=== PATIENT | male | born 1980 | race Hispanic/Latino ===

== ENCOUNTER 2023-02-13 10:05 | Emergency (ER) | payer OTHER, SELFPAY ==
--- NOTE | ~2023-02-13 | XR_ITS ---
EXAMINATION: XR chest 2V DATE: 02/13/2023 10:49 INDICATION: Bilateral rib pain. TECHNIQUE: Frontal and lateral views of the chest were obtained. COMPARISON: Chest 2 views 04/14/2016, CT abdomen and pelvis 05/22/2019 FINDINGS: There is mild scarring at the lung apices. No pleural effusion or pneumothorax. The heart s ize is normal. IMPRESSION: 1. Mild scarring at the lung apices. Reviewed, dictated and finalized at location A.
[2023-02-13 10:27] VITALS: BP 121/74; PULSE 105; RESP 16; TEMP 37.2; O2SAT 100
--- NOTE | 2023-02-13 10:30 | ED.URI ---
HPI - URI/Sore Throat General Chief Complaint: Upper Respiratory Infection Stated Complaint: SOB/Fatique/Bodyaches Time Seen by Provider: 02/13/23 10:30 Source: patient Limitations: no limitations History of Present Illness HPI Narrative: 42 year male presents with complaint, nasal congestion, postnasal drainage, sore throat, fatigue, body aches for the past 5 days. Afebrile. Reports that symptoms started after a windy day at work. States that concrete dust was blowing all over in his face. No history of previous problems with allergies. Does not take any daily antihistamines. Is taking [id number] Mucinex, DayQuil NyQuil cold and flu. reports some shortness of breath with exertion today. patient's would like him to have a chest x-ray. All systems reviewed and negative except as noted above. Related Data Allergies Allergy/AdvReac Type Severity Reaction Status Date / Time No Known Allergies Allergy Verified 02/13/23 10:33 Review of Systems Review of Systems: CONSTITUTIONAL: Denies fever, chills, or sweats. EYES: Denies visual changes, redness, or discharge. ENT: Reports rhinorrhea, congestion, sore throat patient deniesotalgia. CARDIOVASCULAR: Denies chest pain, palpitations, or edema. RESPIRATORY: reports cough and dyspnea with exertion. GASTROINTESTINAL: Denies abdominal pain, nausea, vomiting, or diarrhea. GENITOURINARY: Denies dysuria or hematuria. SKIN: Denies rash or itching. MUSCULOSKELETAL: Denies back pain, joint pain, or myalgia. NEUROLOGIC: Denies headache, numbness, or weakness. PSYCHIATRIC: Denies anxiety or depression. All other systems reviewed are negative, except as documented in HPI. PMFSH Comments At time of signature, agree with nursing past medical, surgical, social and family history. There is no relevant family history pertinent to the presenting complaint. Exam Narrative: GENERAL: This is a well-nourished, well-developed patient, in no apparent distress. HEAD: normocephalic, atraumatic. EYES: PERRL. Sclera clear/white. Vision is grossly intact. EARS: External ears normal, auditory canals clear and without drainage, Fluid to bilateral TMs without erythema or perforation. NOSE: External nose normal with Clear nasal drainage, mild erythema to nares. THROAT: Mucous membranes moist, Mild posterior pharynx erythema with clear postnasal drainage. NECK: Neck supple, non-tender without lymphadenopathy, masses or thyromegaly. CARDIOVASCULAR: Regular rate and rhythm without murmurs, gallops, or rubs. RESPIRATORY: Clear to auscultation. Breath sounds equal bilaterally. No wheezes, rales, or rhonchi. SKIN: warm, Dry, intact with no suspicious lesions or rash, good texture and turgor. NEURO: awake, alert, and oriented to person, place and time. There were no obvious focal neurologic abnormalities. EXTREMITIES: No joint tenderness, effusion, or edema noted. Course Course Level of Care: Express Care Visit Vital Signs Vital signs: Vital Signs Temperature 37.2 C 02/13/23 10:27 Pulse Rate 105 H 02/13/23 10:27 Respiratory Rate 16 02/13/23 10:27 Blood Pressure 121/74 02/13/23 10:27 Pulse Oximetry 100 02/13/23 10:27 Oxygen Delivery Room Air 02/13/23 10:27 Temperature 37.2 C 02/13/23 10:27 Pulse Rate 105 H 02/13/23 10:27 Respiratory Rate 16 02/13/23 10:27 Blood Pressure 121/74 02/13/23 10:27 Pulse Oximetry 100 02/13/23 10:27 Oxygen Delivery Room Air 02/13/23 10:27 Reviewed MDM - URI/Sore Throat MDM Narrative Medical decision making narrative: Patient is aware of diagnosis, understands and agrees to treatment plan. Anticipatory guidance given. Patient agrees to follow-up as directed and is aware of reasons to seek care at the emergency department. Portions of this record may have been created with voice recognition software Imaging Data My impression: Agree with radiologist Radiologist's impression: EXAMINATION: XR chest 2V
== END 2023-02-13 11:13 | disposition home or self-care (01) ==
PROVIDERS: Emergency Provider Nurse Practitioner Family; PCP Registered Nurse
DX: J20.9 Acute bronchitis, unspecified (principal); J30.9 Allergic rhinitis, unspecified; Z20.822 Contact with and (suspected) exposure to COVID-19
CPT/HCPCS: 71046; 87081; 87426; 87804; 87880; 99213; C9803; G0463

== ENCOUNTER 2024-07-26 16:54 | Emergency (ER) | payer OTHER, SELFPAY ==
--- NOTE | ~2024-07-26 | XR_ITS ---
EXAMINATION: XR abdomen/kub 1V DATE: 07/26/2024 18:03 INDICATION: Intermittent abdominal pain. TECHNIQUE: A supine view of the abdomen was obtained. COMPARISON: CT abdomen and pelvis 05/22/2019 FINDINGS: There are no dilated loops of bowel. There is a moderate volume of stool in the colon. Ther e are phleboliths in the pelvis. There are changes of anterior posterior fusion procedures at L5-S1. IMPRESSION: 1. Nonobstructive bowel gas pattern. Reviewed, dictated and finalized at location A.
[2024-07-26 17:08] VITALS: BP 121/77; PULSE 91; RESP 16; TEMP 36.6; O2SAT 98
--- NOTE | 2024-07-26 17:56 | ED.ABDPAIN ---
HPI - Abdominal Pain General Chief Complaint: Abdominal Pain Stated Complaint: stomach hurts feels tight Time Seen by Provider: 07/26/24 17:47 Source: patient and RN notes reviewed Mode of arrival: ambulatory Limitations: no limitations History of Present Illness HPI narrative: Patient presents today complaining of intermittent generalized abdominal pain x1 week. States that some days he does not have pain at all, other days the pain comes, lasts for 5 minutes, then resolves. He is currently pain-free. He denies any associated symptoms to include nausea, vomiting, diarrhea, constipation, fever, urinary symptoms. Pain is not associated with food. No [id number] treatment prior to arrival. Last bowel movement was 2 days ago. Related Data Allergies Allergy/AdvReac Type Severity Reaction Status Date / Time No Known Allergies Allergy Verified 02/13/23 10:33 Review of Systems Review of Systems: CONSTITUTIONAL: Denies body aches, fever, chills, or sweats. EYES: Denies visual changes, redness, or discharge. ENT: Denies rhinorrhea, congestion, sore throat, or otalgia. CARDIOVASCULAR: Denies chest pain, palpitations, or edema. RESPIRATORY: Denies cough or dyspnea. GASTROINTESTINAL: Denies nausea, vomiting, or diarrhea.+ abdominal pain GENITOURINARY: Denies dysuria or hematuria. SKIN: Denies rash, itching, or wounds. MUSCULOSKELETAL: Denies back pain, joint pain, or myalgia. NEUROLOGIC: Denies headache, numbness, tingling, or weakness. PSYCH: Denies depression or anxiety. PMFSH Comments Reviewed Exam Narrative: GENERAL: Well-appearing, well-nourished, and in no acute distress. HEAD: Normocephalic, atraumatic. EYES: EOMI. No redness or drainage. Conjunctivae normal. ENT: Mucous membranes pink and moist. NECK: Normal AROM. CHEST: No respiratory distress. Clear to auscultation. HEART: Regular rate and rhythm. No murmur appreciated. ABDOMEN: Soft, nondistended,hyperactive bowel sounds.+Mild generalized abdominal tenderness without rebound or guarding. EXTREMITIES: Normal range of motion. No edema. SKIN: Warm, dry, no rash. Capillary refill normal. Normal skin turgor. NEURO: No focal deficits. Alert and oriented x3. Gait steady. PSYCH: Normal affect. No signs of depression or anxiety. Course Course Level of Care: Express Care Visit Vital Signs Vital signs: Vital Signs Temperature 97.9 F 07/26/24 17:08 Pulse Rate 91 07/26/24 17:08 Respiratory Rate 16 07/26/24 17:08 Blood Pressure 121/77 07/26/24 17:08 Pulse Oximetry 98 07/26/24 17:08 Oxygen Delivery Room Air 07/26/24 17:08 Temperature 97.9 F 07/26/24 17:08 Pulse Rate 91 07/26/24 17:08 Respiratory Rate 16 07/26/24 17:08 Blood Pressure 121/77 07/26/24 17:08 Pulse Oximetry 98 07/26/24 17:08 Oxygen Delivery Room Air 07/26/24 17:08 Reviewed MDM - Abdominal Pain MDM Narrative Medical decision making narrative: X-ray shows moderate amount stool in the colon nonobstructive bowel gas pattern. Based on patient's symptoms, likely constipation. Recommend MiraLax. ED precautions given. Differential Diagnosis Differential diagnosis: Likely abdominal pain, constipation and other (IBS) Imaging Data Radiologist's impression: ITS Impressions Abdomen X-Ray 07/26/24 18:05 IMPRESSION: 1. Nonobstructive bowel gas pattern. Critical Care Time Critical Care Time Critical Care Time: No Discharge Plan Discharge Clinical Impression: Constipation Patient Disposition: Home, Self-Care Condition: Stable Instructions: Constipation (DC) Additional Instructions: Duncan radiograf?a muestra lynne cantidad moderada de heces en el colon. Los s?ntomas pueden deberse al estre?imiento. Inicie MiraLax y t?hollis diariamente. Cassi armando agua. Si los s?ntomas empeoran e incluyen fiebre, dolor abdominal que empeora o v?mitos, vaya a la govind de emergencias para lynne evaluaci?n adicional. Si los s?ntomas no
== END 2024-07-26 18:33 | disposition home or self-care (01) ==
PROVIDERS: Emergency Provider Nurse Practitioner
DX: K59.00 Constipation, unspecified (principal)
CPT/HCPCS: 74018; 99213; G0463